=== PATIENT | male | born 1985 | race African-American/Black ===

== ENCOUNTER 2016-07-31 00:35 | Emergency (ER) | payer SELFPAY ==
[~2016-07-31] VITALS: Ht 177.8 cm; Wt 90.0 kg
[2016-07-31 00:44] VITALS: BP 120/75; PULSE 85; RESP 16; TEMP 99; O2SAT 100
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
--- NOTE | 2016-07-31 01:39 | RADHPO ---
EXAM DATE/TIME: 07/31/2016 01:09 [facility] COMPARISON: No previous studies available for comparison. INDICATIONS : Possible foreign body right palm, x 4 months MEDICAL HISTORY : None. SURGICAL HISTORY : None. ENCOUNTER: Initial ACUITY: 4 - 6 months PAIN SCORE: Non-responsive. LOCATION: Right palm FINDINGS: Three view examination of the right hand demonstrates no soft tissue swelling, dislocation, or fractu re. The carpal bones appear intact. The interphalangeal and metacarpophalangeal joints are intact. Bony mineralization is normal. CONCLUSION: Unremarkable examination of the right hand. Wale Dalton MD on July 31, 2016 at 1:37 Board Certified Radiologist. This report was verified electronically.
[2016-07-31] MEDS ORDERED: LIDOCAINE HCL 1% PF 30 ML VIAL INFIL ONE (01:45)
[2016-07-31] MEDS ORDERED: SULFAMETHOXAZOLE-TRIMETHOPRIM DS 800-160 MG TAB PO ONE (02:00)
[2016-07-31 02:15] VITALS: BP 142/69; PULSE 77; RESP 18; TEMP 97.7; O2SAT 100
[2016-07-31] MEDS ORDERED: BACT800T5 PO (02:30)
== END 2016-07-31 02:36 | disposition home or self-care (01) ==
LOC: PHED 00:35
DX: S69.91XA Unspecified injury of right wrist, hand and finger(s), initial encounter (principal); L84 Corns and callosities; J45.909 Unspecified asthma, uncomplicated; F17.210 Nicotine dependence, cigarettes, uncomplicated; F12.10 Cannabis abuse, uncomplicated
CPT/HCPCS: 73130; 86403; 87070; 99283

== ENCOUNTER 2017-01-20 16:00 | Emergency (ER) | payer MEDICAID ==
[~2017-01-20] VITALS: Ht 180.3 cm; Wt 70.0 kg
[~2017-01-20 16:00] MED LIST: BACT800T5 PO
[2017-01-20] MEDS ORDERED: RESP: ALBUTEROL 2.5 MG/3 ML NEB (SCH) INH ONE (16:15)
[2017-01-20 16:19] VITALS: BP 132/74; PULSE 89; RESP 18; O2SAT 99
--- NOTE | 2017-01-20 16:31 | PD ---
HPI Chief Complaint: Respiratory Symptoms Time Seen by Provider: 16:07 Travel History International Travel<30 days: No Contact w/Intl Traveler<30days: No Traveled to known affect area: No History of Present Illness HPI Patient is a 31-year-old male who is brought to emergency room by EMS as well as police officers, patient reports that he was arrested today and was injured during this arrest. Reports pain to his right shoulder and is also complaing of shortness of breath. Patient reports that he has history of asthma, reports that during this whole event, he felt as if he could not breathe. Patient reports that he is feeling better at this time, denies any chest pain or shortness of breath at this time. Patient reports that he does have ligamentous injuries to his right shoulder at baseline. PFSH Past Medical History Asthma: Yes Autoimmune Disease: No Blood Disorders: No Heart Rhythm Problems: No Cancer: No Cardiovascular Problems: Yes (Heart murmur) High Cholesterol: No Chemotherapy: No Chest Pain: No Congestive Heart Failure: No COPD: No Diminished Hearing: No Endocrine: No Genitourinary: No Headaches: Yes Hypertension: No Immune Disorder: Yes Musculoskeletal: No Neurologic: Yes Psychiatric: No Respiratory: Yes Myocardial Infarction: No Radiation Therapy: No Sleep Apnea: No ?: Not Past Surgical History Abdominal Surgery: No AICD: No Cardiac Surgery: Yes (PT THINKS HE HAD SX ON HIS HEART A BABY) Endocrine Surgery: No Eye Surgery: No Genitourinary Surgery: No Gynecologic Surgery: No Oral Surgery: Yes (child) Pacemaker: No Thoracic Surgery: No Other Surgery: Yes Social History Alcohol Use: Yes (Socially) Tobacco Use: Yes (1/2 ppd) Substance Use: Yes (Marijuana) Allergies-Medications (Allergen,Severity, Reaction): Coded Allergies: No Known Allergies (Verified , 07/31/16) Reported Meds & Prescriptions Reported Meds & Active Scripts Active Bactrim DS (Sulfamethoxazole-Trimethoprim) 800-160 Mg Tab 1 Tab PO BID Review of Systems General / Constitutional: No: Fever Eyes: No: Visual changes HENT: No: Headaches Cardiovascular: No: Chest Pain or Discomfort Respiratory: Positive: Shortness of Breath, No: Cough, Wheezing, Sneezing Gastrointestinal: No: Abdominal Pain Genitourinary: No: Dysuria Musculoskeletal: Positive: Pain Skin: No Rash Neurologic: No: Weakness Psychiatric: No: Depression Endocrine: No: Polydipsia Hematologic/Lymphatic: No: Easy Bruising Physical Exam Narrative GENERAL: No acute distress, nontoxic SKIN: Focused skin assessment warm/dry. HEAD: Atraumatic. Normocephalic. EYES: Pupils equal and round. No scleral icterus. No injection or drainage. ENT: No nasal bleeding or discharge. Mucous membranes pink and moist. NECK: Trachea midline. No JVD. CARDIOVASCULAR: Regular rate and rhythm. No murmur appreciated. RESPIRATORY: No accessory muscle use. Clear to auscultation. Breath sounds equal bilaterally. Patient with no respiratory distress GASTROINTESTINAL: Abdomen soft, non-tender, nondistended. Hepatic and splenic margins not palpable. MUSCULOSKELETAL: No obvious deformities. No clubbing. No cyanosis. No edema. Patient with good range of motion to left shoulder, left elbow, left wrist, no obvious fractures or deformities, RUE: normal exam NEUROLOGICAL: Awake and alert. No obvious cranial nerve deficits. Motor grossly within normal limits. Normal speech. PSYCHIATRIC: Appropriate mood and affect; insight and judgment normal. Data Data Last Documented VS Vital Signs Date Time Temp Pulse Resp B/P Pulse Ox O2 Delivery O2 Flow Rate FiO2 01/20/17 16:19 89 18 132/74 99 Room Air Orders Chest, Pa & Lat (01/20/17 ) Shoulder, Complete (>2vws) (01/20/17 ) Albuterol Neb (Albuterol Neb) (01/20/17 16:15) [facility] [place] Medical Decision Making Medical Screen Exam Complete: Yes Emergency Medical Condition: Yes Interpretation(s) Vital Signs Date Time Temp Pulse Resp B/P Pulse Ox O2 Delivery O2 Flow Rate FiO2 01/20/17 16:19 89 18 132/74 99 Room Air Differential Diagnosis Differential includes shoulder sprain, asthma exacerbation, panic attack, stress reaction Narrative Course 31-year-old male who presents to emergency room with police officers and EMS, patient was apparently arrested this afternoon, reports that during his arrest, he injured his right shoulder and began to feel sob. Reports that he feels fine at this time, reports resolution of shortness of breath. Reports that he always has pain to his right shoulder - reports exacerbation of pain today. VSS Lungs are clear to auscultation. Patient with no respiratory distress. Xray of right shoulder and chest obtained. Diagnosis Primary Impression: Shoulder sprain Qualified Code: S43.401A - Sprain of right shoulder, unspecified shoulder sprain type, initial encounter Additional Impression: Anxiety reaction Patient Instructions: General Instructions Additional Instructions: Please follow up with your primary care doctor in 2-3 days Return to ER as needed Disposition: 01 DISCHARGE HOME Condition: Stable Zuleyma Tompkins DO Jan 20, 2017 16:31
--- NOTE | 2017-01-20 17:19 | RADRPT ---
EXAM DATE/TIME: 01/20/2017 16:51 [facility] COMPARISON: No previous studies available for comparison. INDICATIONS : Right shoulder Pain MEDICAL HISTORY : None. SURGICAL HISTORY : None. ENCOUNTER: Initial ACUITY: 1 day PAIN SCORE: 7/10 LOCATION: Right Chest FINDINGS: PA and lateral views of the chest demonstrate the lungs to be symmetrically aerated without evidence of mass, infiltrate or effusion. The cardiomediastinal contours are unremarkable. Osseous structure s are intact. CONCLUSION: No acute disease. Tiburcio Shaffer MD on January 20, 2017 at 17:17 Board Certified Radiologist. This report was verified electronically.
--- NOTE | 2017-01-20 17:19 | RADRPT ---
EXAM DATE/TIME: 01/20/2017 16:52 [facility] COMPARISON: No previous studies available for comparison. INDICATIONS : Right shoulder pain MEDICAL HISTORY : None. SURGICAL HISTORY : None. ENCOUNTER: Initial ACUITY: days PAIN SCORE: 6/10 LOCATION: Right upper extremity FINDINGS: Multiple view examination of the right shoulder demonstrates no evidence of fracture or dislocation. The glenohumeral and acromioclavicular joints are maintained. There is normal range of motion betwe en internal and external rotation. Bony mineralization is normal. CONCLUSION: Unremarkable examination of the right shoulder. Tiburcio Shaffer MD on January 20, 2017 at 17:17 Board Certified Radiologist. This report was verified electronically.
--- NOTE | 2017-01-20 17:25 | PD ---
Data Data Last Documented VS Vital Signs Date Time Temp Pulse Resp B/P Pulse Ox O2 Delivery O2 Flow Rate FiO2 01/20/17 16:19 89 18 132/74 99 Room Air Orders Chest, Pa & Lat (01/20/17 ) Shoulder, Complete (>2vws) (01/20/17 ) Albuterol Neb (Albuterol Neb) (01/20/17 16:15) MDM Supervised Visit with LIZETH: No Narrative Course The patient was initially evaluated by the previous provider and signed out to me at the beginning of my shift at approximately 5:00 PM pending chest x-ray and right shoulder x-ray, and disposition. See her note for further details. Briefly this is a 31-year-old male who was brought here by EMS as well as PD after being placed under arrest. Patient reportedly started complaining of right shoulder pain as well as shortness of breath that started after being arrested. He has history of asthma. He was provided an albuterol treatment by the previous provider. On my assessment he is resting comfortably. Lung sounds are clear and equal bilaterally. There are no obvious signs of trauma. Chest x-ray shows no acute disease. Right shoulder x-ray shows no injuries. He was made aware of all findings. He will be discharged to prison. Diagnosis Primary Impression: Shoulder sprain Qualified Code: S43.401A - Sprain of right shoulder, unspecified shoulder sprain type, initial encounter Additional Impression: Anxiety reaction Patient Instructions: General Instructions Additional Instruction: Please follow up with your primary care doctor in 2-3 days Return to ER as needed Disposition: [address] [employer] ENFORCEM[employer] Condition: Stable Doc Ramos MD Jan 20, 2017 17:25
[2017-01-20 18:27] VITALS: BP 143/67; TEMP 98.4
== END 2017-01-20 18:00 ==
LOC: NEPD 16:00
DX: S43.401A Unspecified sprain of right shoulder joint, initial encounter (principal); F41.1 Generalized anxiety disorder; W19.XXXA Unspecified fall, initial encounter
CPT/HCPCS: 71020; 73030; 94664; 99284; J7613